=== PATIENT | female | born 1940 | race Caucasian/White ===

== ENCOUNTER → 2017-07-05 08:45 | Outpatient (CLI) | payer MEDICARE, SELFPAY ==
[2017-07-05 12:47] LABS: Absolute Lymphocyte Count 1.59 X10^3/ul (0.83-4.51); Absolute Neutrophil Count 5.6 X10^3/uL (2.0-7.7); Basophil# 0.01 X10^3/uL; Basophil% 0.1 % (0-1); Eosinophil# 0.09 X10^3/uL; Eosinophils% 1.2 % (0-5); Hematocrit 39.4 % (37-47); Hemoglobin 13.3 g/dl (12.0-15.0); Lymphocyte # 1.59 X10^3/ul (4.0); Lymphocyte % 20.9 % (19-41); Mean Corp Hgb Conc 33.8 g/gl (32-36); Mean Corpuscular Hgb 29.6 pg (27.0-32.0); Mean Corpuscular Volume 87.8 fL (81-99); Mean Platelet Vol. 11.8 fl (6.2-12.0); Monocyte# 0.34 X10^3/uL; Monocyte% 4.5 % (0-10); Neutrophil # 5.58 X10^3/uL (2.7-7.7); Neutrophil % 73.2 % (47-70); POSITIVE COUNT NO; POSITIVE DIFFERENTIAL NO; POSITIVE MORPHOLOGY NO; Platelet Count 146 K/mm3 (150-450); RBC Distribution Width CV 12.6 % (11.6-14.6); RBC Distribution Width SD 39.2 fl (35.1-43.9); Red Blood Count 4.49 M/mm3 (4.2-5.4); White Blood Count 7.6 K/mm3 (4.4-11.0)
[2017-07-05 13:03] LABS: Vitamin D,25 Hydroxy 22.1 ng/mL (29.95-100.01)
[2017-07-05 13:08] LABS: ALB/GLOB Ratio 1.3 RATIO (0.9-2.4); AST(SGOT) 32 U/L (15-37); Alanine Aminotransfer ALT/SGPT 51 U/L (13-56); Albumin, Serum 3.9 g/dL (3.2-5.0); Alkaline Phosphatase 88 U/L (45-117); Anion Gap 6 (5-15); BUN 19 mg/dL (7-18); BUN/Creat Ratio 16.4 RATIO (10-20); Calcium,Total 9.1 mg/dL (8.5-10.1); Chloride 108 mmol/L (98-107); Creatinine, Serum 1.16 mg/dL (0.55-1.02); EST Glomerular Filtration Rate 49 mL/min (>60); Est Glom Filt Rate - Afr Amer 59 mL/min (>60); Globulin 3.1 g/dL (2.2-4.2); Glucose 90 mg/dL (74-106); Potassium 4.7 mmol/L (3.5-5.1); Sodium Level 142 mmol/L (136-145); Uric Acid 4.7 mg/dL (2.6-6.0)
== END ==
PROVIDERS: Family Provider Family Medicine Geriatric Medicine; PCP Family Medicine Geriatric Medicine; Visit Provider Family Medicine Geriatric Medicine
DX: E03.9 Hypothyroidism, unspecified (principal); E55.9 Vitamin D deficiency, unspecified; M10.9 Gout, unspecified
CPT/HCPCS: 36415; 80053; 82306; 84443; 84550; 85025

== ENCOUNTER → 2018-07-11 10:02 | Outpatient (CLI) | payer MEDICARE, SELFPAY ==
[2018-07-11 13:23] LABS: Absolute Lymphocyte Count 1.64 X10^3/ul (0.83-4.51); Absolute Neutrophil Count 3.2 X10^3/uL (2.0-7.7); Basophil# 0.03 X10^3/uL; Basophil% 0.6 % (0-1); Eosinophil# 0.12 X10^3/uL; Eosinophils% 2.2 % (0-5); Hemoglobin 13.1 g/dl (12.0-15.0); Lymphocyte # 1.64 X10^3/ul (4.0); Lymphocyte % 30.4 % (19-41); Mean Corp Hgb Conc 32.8 g/gl (32-36); Mean Corpuscular Hgb 28.6 pg (27.0-32.0); Mean Corpuscular Volume 87.3 fL (81-99); Mean Platelet Vol. 11.5 fl (6.2-12.0); Monocyte# 0.37 X10^3/uL; Monocyte% 6.9 % (0-10); Neutrophil # 3.22 X10^3/uL (2.7-7.7); Neutrophil % 59.7 % (47-70); Platelet Count 172 K/mm3 (150-450); RBC Distribution Width CV 12.6 % (11.6-14.6); RBC Distribution Width SD 40.4 fl (35.1-43.9); Red Blood Count 4.58 M/mm3 (4.2-5.4); White Blood Count 5.4 K/mm3 (4.4-11.0)
[2018-07-11 13:29] LABS: POSITIVE COUNT NO; POSITIVE DIFFERENTIAL NO; POSITIVE MORPHOLOGY NO
[2018-07-11 13:40] LABS: Vitamin D,25 Hydroxy 30.7 ng/mL (29.95-100.01)
[2018-07-11 13:48] LABS: ALB/GLOB Ratio 1.3 RATIO (0.9-2.4); AST(SGOT) 18 U/L (15-37); Alanine Aminotransfer ALT/SGPT 22 U/L (13-56); Albumin, Serum 4.2 g/dL (3.2-5.0); Alkaline Phosphatase 90 U/L (45-117); Anion Gap 8 (5-15); BUN 19 mg/dL (7-18); BUN/Creat Ratio 16.2 RATIO (10-20); Calcium,Total 9.3 mg/dL (8.5-10.1); Chloride 108 mmol/L (98-107); Creatinine, Serum 1.17 mg/dL (0.55-1.02); EST Glomerular Filtration Rate 48 mL/min (>60); Est Glom Filt Rate - Afr Amer 58 mL/min (>60); Globulin 3.2 g/dL (2.2-4.2); Glucose 108 mg/dL (74-106); Potassium 3.4 mmol/L (3.5-5.1); Protein, Total 7.4 g/dL (6.4-8.2); Sodium Level 142 mmol/L (136-145); Thyroid Stim Hormone (TSH) 0.89 uIU/mL (0.358-3.74)
== END ==
PROVIDERS: Family Provider Family Medicine Geriatric Medicine; PCP Family Medicine Geriatric Medicine; Visit Provider Family Medicine Geriatric Medicine
DX: E55.9 Vitamin D deficiency, unspecified (principal); R53.83 Other fatigue; M10.9 Gout, unspecified
CPT/HCPCS: 36415; 80053; 82306; 84443; 84550; 85025

== ENCOUNTER 2018-09-01 16:02 | Emergency (ER) | payer MEDICARE, SELFPAY ==
[2018-09-01 16:04] VITALS: BP 148/71; PULSE 74; RESP 16; TEMP 36.8; O2SAT 100; BMI 31.3
[2018-09-01 16:07] VITALS: O2SAT 100
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
[2018-09-01] MEDS: 0.9% Normal Saline 1,000 ML 999 ML IV (16:31)
[2018-09-01 16:33] LABS: Absolute Lymphocyte Count 1.64 X10^3/ul (0.83-4.51); Absolute Neutrophil Count 6.3 X10^3/uL (2.0-7.7); Basophil# 0.02 X10^3/uL; Basophil% 0.2 % (0-1); Eosinophil# 0.05 X10^3/uL; Eosinophils% 0.6 % (0-5); Hematocrit 35.6 % (37-47); Lymphocyte # 1.64 X10^3/ul (4.0); Lymphocyte % 19.7 % (19-41); Mean Corp Hgb Conc 33.7 g/gl (32-36); Mean Platelet Vol. 10.9 fl (6.2-12.0); Monocyte# 0.32 X10^3/uL; Monocyte% 3.8 % (0-10); Neutrophil # 6.27 X10^3/uL (2.7-7.7); Neutrophil % 75.3 % (47-70); Platelet Count 151 K/mm3 (150-450); RBC Distribution Width CV 12.7 % (11.6-14.6); RBC Distribution Width SD 39.6 fl (35.1-43.9); Red Blood Count 4.14 M/mm3 (4.2-5.4); White Blood Count 8.3 K/mm3 (4.4-11.0)
[2018-09-01 16:34] LABS: POSITIVE COUNT NO; POSITIVE DIFFERENTIAL NO; POSITIVE MORPHOLOGY NO
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
[2018-09-01 16:39] LABS: Prothrombin Time (Protime)PT. 12.8 SECONDS (11.7-14.9)
[2018-09-01 16:47] LABS: Anion Gap 8 (5-15); BUN 23 mg/dL (7-18); BUN/Creat Ratio 22.3 RATIO (10-20); Calcium,Total 8.7 mg/dL (8.5-10.1); Chloride 110 mmol/L (98-107); Creatinine, Serum 1.03 mg/dL (0.55-1.02); EST Glomerular Filtration Rate 55 mL/min (>60); Est Glom Filt Rate - Afr Amer 67 mL/min (>60); Estimated Creatinine Clearance 45.89 ml/min; Glucose 105 mg/dL (74-106); Potassium 3.7 mmol/L (3.5-5.1); Sodium Level 142 mmol/L (136-145)
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
[2018-09-01 18:07] VITALS: BP 133/66; PULSE 76; RESP 14; O2SAT 96
[2018-09-01] MEDS: Ondansetron 4 MG/2 ML Vial IV (18:08)
[2018-09-01] MEDS: Morphine 4 MG/ML Syringe IV (18:11)
--- NOTE | 2018-09-01 18:18 | ED.RN ---
CALLED PTS MARIBELL OLIVAS WHO IS CURRENTLY IN THE [facility]. SHE IS AWARE OF PT STATUS AND THAT SHE IS BEING TRANSFERRED TO [facility]
[2018-09-01 18:49] VITALS: BP 131/66; PULSE 74; RESP 14; O2SAT 95
[2018-09-01 19:04] VITALS: BP 131/66; PULSE 74; RESP 14; O2SAT 95
== END 2018-09-01 19:06 | disposition short-term general hospital (02) ==
LOC: ED 16:26
PROVIDERS: Emergency Provider Emergency Medicine; Family Provider Family Medicine Geriatric Medicine; PCP Family Medicine Geriatric Medicine
DX: S82.252A Displaced comminuted fracture of shaft of left tibia, initial encounter for closed fracture (principal); S82.452A Displaced comminuted fracture of shaft of left fibula, initial encounter for closed fracture; S50.812A Abrasion of left forearm, initial encounter; I10 Essential (primary) hypertension; Z79.899 Other long term (current) drug therapy; V09.20XA Pedestrian injured in traffic accident involving unspecified motor vehicles, initial encounter; Y93.01 Activity, walking, marching and hiking; Y92.488 Other paved roadways as the place of occurrence of the external cause; Y99.8 Other external cause status
CPT/HCPCS: 51702; 70450; 71045; 72125; 73090; 73130; 73552; 73590; 73630; 74177; 80048; 85025; 85610; 86850; 86900; 96361; 96374; 96375; 99285; Q9967; A4216; J2405

== ENCOUNTER → 2020-08-03 11:44 | Outpatient (CLI) | payer MEDICARE, SELFPAY ==
[2020-08-03 12:19] LABS: Absolute Lymphocyte Count 1.96 X10^3/uL (0.83-4.51); Absolute Neutrophil Count 2.3 X10^3/uL (2.0-7.7); Basophil# 0.03 X10^3/uL; Basophil% 0.6 % (0-1); Eosinophil# 0.09 X10^3/uL; Eosinophils% 1.9 % (0-5); Hematocrit 40.1 % (37-47); Hemoglobin 12.9 g/dL (12.0-15.0); Lymphocyte # 1.96 X10^3/ul (0.83-4.51); Lymphocyte % 41.4 % (19-41); Mean Corp Hgb Conc 32.2 g/dL (32-36); Mean Corpuscular Hgb 28.8 pg (27.0-32.0); Mean Corpuscular Volume 89.5 fL (81-99); Mean Platelet Vol. 11.4 fl (6.2-12.0); Monocyte# 0.31 X10^3/uL; Monocyte% 6.6 % (0-10); NRBC Flagged by Analyzer 0 % (0-5); Neutrophil # 2.33 X10^3/uL (2.7-7.7); Neutrophil % 49.3 % (47-70); Platelet Count 159 K/mm3 (150-450); RBC Distribution Width CV 12.3 % (11.6-14.6); Red Blood Count 4.48 M/mm3 (4.2-5.4); White Blood Count 4.7 K/mm3 (4.4-11.0)
[2020-08-03 12:35] LABS: Vitamin D,25 Hydroxy 22.5 ng/mL
[2020-08-03 12:48] LABS: ALB/GLOB Ratio 1.2 RATIO (0.9-2.4); AST(SGOT) 16 U/L (15-37); Alanine Aminotransfer ALT/SGPT 20 U/L (13-56); Alkaline Phosphatase 95 U/L (45-117); Anion Gap 3 (5-15); BUN 22 mg/dL (7-18); BUN/Creat Ratio 21.8 RATIO (10-20); Calcium,Total 9.2 mg/dL (8.5-10.1); Chloride 109 mmol/L (98-107); Creatinine, Serum 1.01 mg/dL (0.55-1.02); EST Glomerular Filtration Rate 56 mL/min (>60); Est Glom Filt Rate - Afr Amer 68 mL/min (>60); Globulin 3.3 g/dL (2.2-4.2); Glucose 98 mg/dL (74-106); Potassium 4.5 mmol/L (3.5-5.1); Protein, Total 7.3 g/dL (6.4-8.2); Sodium Level 140 mmol/L (136-145); Thyroid Stim Hormone (TSH) 0.55 uIU/mL (0.358-3.74); Uric Acid 4.2 mg/dL (2.6-6.0)
== END ==
PROVIDERS: PCP Family Medicine Geriatric Medicine; Visit Provider Family Medicine Geriatric Medicine
DX: E55.9 Vitamin D deficiency, unspecified (principal); M10.9 Gout, unspecified; R53.83 Other fatigue
CPT/HCPCS: 36415; 80053; 82306; 84443; 84550; 85025

== ENCOUNTER 2021-05-03 17:00 | Outpatient (CLI) | payer MEDICARE, SELFPAY ==
[2021-05-03 18:31] LABS: M R Staph aureus DNA By PCR Negative (Negative); Probe Check PASS; Specimen Processing Control PASS; Staph aureus DNA By PCR NEGATIVE (Negative)
== END 2021-05-03 23:59 | disposition short-term general hospital (02) ==
PROVIDERS: PCP Family Medicine Geriatric Medicine; Visit Provider Family Medicine Geriatric Medicine
DX: B00.1 Herpesviral vesicular dermatitis (principal); K13.0 Diseases of lips
CPT/HCPCS: 87640

== ENCOUNTER 2021-05-18 11:28 | Outpatient (CLI) | payer MEDICARE, SELFPAY ==
--- NOTE | 2021-05-18 11:36 | MRI_ITS ---
STUDY: MRI BRAIN WITH AND WITHOUT CONTRAST REASON FOR EXAM: Female, 80 years old. MEMORY LOSS, hx prior surgery for benign tumor removal TECHNIQUE: Standardized multiplanar fat and water weighted pulse sequences were obtained. 15ml IV Dotarem was administered for the contrast portion of the examination. COMPARISON: CT 09/01/2018 FINDINGS: There is mild cerebral atrophy with widening of the extra-axial spaces and ventricular dilatation. Normal white matter tracts of the supratentorial brain. There is no evidence for recent intracranial ischemia or other cause of cytotoxic edema on diffusion weighted imaging (DWI). Normal T2* images of the brain without demonstrated susceptibility artifact. There is no demonstrated hemosiderin stain. Healed left parietal craniotomy with large area of encephalomalacia and gliosis in the subjacent left parietal lobe. Normal bilateral basal ganglia. Normal thalami. There is no extra-axial fluid accumulation. Normal flow voids within the major intracranial circulation suggesting patency by spin echo criteria. Normal venous enhancement. There is no enhancing intra-axial or extra-axial abnormality. Normal sella turcica, pituitary gland, infundibular stalk, optic chiasm and hypothalamus. Normal tectal plate and pineal gland. Normal midbrain, flavia and medulla. Normal cerebellum. Normal basal cisterns. There is mild chronic otomastoiditis of the bilateral temporal bones. Normal bilateral internal auditory canals. No demonstrated orbital abnormality, within the constraints of a routine brain study. Normal visualized paranasal sinuses. Normal calvarium and skull base. Normal visualized soft tissue structures. Normal visualized upper cervical spine. MRI/Brain W/WO Contrast IMPRESSION: No change from 09/01/2018. Electronically Signed: Alex Whitaker MD at 12:50 EST ,
[2021-05-18 11:56] LABS: CREATININE FINGERSTICK 0.9 mg/dL (0.55-1.02); EGFR FINGERSTICK > 60.0000 mL/min (>60)
== END 2021-05-18 23:59 | disposition home or self-care (01) ==
LOC: MRI 11:30
PROVIDERS: PCP Family Medicine Geriatric Medicine; Visit Provider Family Medicine Geriatric Medicine
DX: R41.3 Other amnesia (principal)
CPT/HCPCS: 70553; A9575

== ENCOUNTER → 2021-08-10 | Outpatient (CLI) | payer MEDICARE, SELFPAY ==
[2021-08-10 16:53] LABS: Absolute Lymphocyte Count 1.65 X10^3/uL (0.83-4.51); Absolute Neutrophil Count 3.5 X10^3/uL (2.0-7.7); Basophil# 0.05 X10^3/uL; Basophil% 0.9 % (0-1); Eosinophil# 0.12 X10^3/uL; Eosinophils% 2.1 % (0-5); Hematocrit 39.8 % (37-47); Hemoglobin 12.9 g/dL (12.0-15.0); Lymphocyte # 1.65 X10^3/ul (0.83-4.51); Lymphocyte % 28.6 % (19-41); Mean Corp Hgb Conc 32.4 g/dL (32-36); Mean Corpuscular Volume 89.4 fL (81-99); Mean Platelet Vol. 11.5 fl (6.2-12.0); Monocyte% 6.9 % (0-10); NRBC Flagged by Analyzer 0 % (0-5); Neutrophil # 3.54 X10^3/uL (2.7-7.7); Neutrophil % 61.3 % (47-70); Platelet Count 162 K/mm3 (150-450); RBC Distribution Width CV 13.1 % (11.6-14.6); RBC Distribution Width SD 42.9 fl (35.1-43.9); Red Blood Count 4.45 M/mm3 (4.2-5.4); White Blood Count 5.8 K/mm3 (4.4-11.0)
[2021-08-10 17:27] LABS: ALB/GLOB Ratio 1.2 RATIO (0.9-2.4); AST(SGOT) 24 U/L (15-37); Alanine Aminotransfer ALT/SGPT 32 U/L (13-56); Albumin, Serum 3.8 g/dL (3.2-5.0); Alkaline Phosphatase 78 U/L (45-117); Anion Gap 4 (5-15); BUN 21 mg/dL (7-18); BUN/Creat Ratio 19.3 RATIO (10-20); Calcium,Total 9.6 mg/dL (8.5-10.1); Chloride 111 mmol/L (98-107); Cholesterol 170 mg/dL (200); Creatinine, Serum 1.09 mg/dL (0.55-1.02); EST Glomerular Filtration Rate 52 mL/min (>60); Est Glom Filt Rate - Afr Amer 62 mL/min (>60); Globulin 3.2 g/dL (2.2-4.2); Glucose 94 mg/dL (74-106); High Density Lipoprotein 85 mg/dL; Sodium Level 143 mmol/L (136-145); Thyroid Stim Hormone (TSH) 0.65 uIU/mL (0.358-3.74); Triglycerides 64 mg/dL; Very Low Density Lipoprotein 13 mg/dL (5-40)
== END | disposition home or self-care (01) ==
LOC: POLAB3 16:07
PROVIDERS: PCP Family Medicine Geriatric Medicine; Visit Provider Family Medicine Geriatric Medicine
DX: E55.9 Vitamin D deficiency, unspecified (principal); E78.5 Hyperlipidemia, unspecified; R53.83 Other fatigue
CPT/HCPCS: 36415; 80053; 80061; 82306; 84443; 85025

== ENCOUNTER → 2021-11-02 | Outpatient (CLI) | payer MEDICARE, SELFPAY ==
[2021-11-02 17:22] LABS: Absolute Lymphocyte Count 1.76 X10^3/uL (0.83-4.51); Absolute Neutrophil Count 3.5 X10^3/uL (2.0-7.7); Basophil# 0.06 X10^3/uL; Eosinophil# 0.16 X10^3/uL; Eosinophils% 2.7 % (0-5); Hematocrit 42.9 % (37-47); Hemoglobin 13.8 g/dL (12.0-15.0); Lymphocyte # 1.76 X10^3/ul (0.83-4.51); Lymphocyte % 30.2 % (19-41); Mean Corp Hgb Conc 32.2 g/dL (32-36); Mean Corpuscular Hgb 29.4 pg (27.0-32.0); Mean Corpuscular Volume 91.5 fL (81-99); Mean Platelet Vol. 12.4 fl (6.2-12.0); Monocyte# 0.31 X10^3/uL; Monocyte% 5.3 % (0-10); NRBC Flagged by Analyzer 0 % (0-5); Neutrophil # 3.53 X10^3/uL (2.7-7.7); Neutrophil % 60.6 % (47-70); Platelet Count 154 K/mm3 (150-450); RBC Distribution Width SD 43.7 fl (35.1-43.9); Red Blood Count 4.69 M/mm3 (4.2-5.4); White Blood Count 5.8 K/mm3 (4.4-11.0)
[2021-11-02 17:38] LABS: Vitamin D,25 Hydroxy 44.2 ng/mL
[2021-11-02 17:42] LABS: ALB/GLOB Ratio 1.2 RATIO (0.9-2.4); AST(SGOT) 34 U/L (15-37); Alanine Aminotransfer ALT/SGPT 57 U/L (13-56); Albumin, Serum 3.5 g/dL (3.2-5.0); Alkaline Phosphatase 102 U/L (45-117); Anion Gap 6 (5-15); BUN 17 mg/dL (7-18); BUN/Creat Ratio 14.3 RATIO (10-20); Calcium,Total 9.2 mg/dL (8.5-10.1); Chloride 113 mmol/L (98-107); Creatinine, Serum 1.19 mg/dL (0.55-1.02); EST Glomerular Filtration Rate 47 mL/min (>60); Est Glom Filt Rate - Afr Amer 56 mL/min (>60); Globulin 2.9 g/dL (2.2-4.2); Glucose 96 mg/dL (74-106); Potassium 4.2 mmol/L (3.5-5.1); Protein, Total 6.4 g/dL (6.4-8.2); Sodium Level 144 mmol/L (136-145); Thyroid Stim Hormone (TSH) 1.67 uIU/mL (0.358-3.74); Uric Acid 4.7 mg/dL (2.6-6.0)
== END | disposition home or self-care (01) ==
LOC: POLAB3 14:42
PROVIDERS: PCP Family Medicine Geriatric Medicine; Visit Provider Family Medicine Geriatric Medicine
DX: E55.9 Vitamin D deficiency, unspecified (principal); M10.9 Gout, unspecified; R53.83 Other fatigue
CPT/HCPCS: 36415; 80053; 82306; 84443; 84550; 85025

== ENCOUNTER → 2021-11-08 | Outpatient (CLI) | payer MEDICARE, MEDICAID, SELFPAY ==
--- NOTE | 2021-11-08 09:57 | ECHOD_ITS ---
Reason For Study: Arrhythmia Procedure This was a 2D Doppler, Color Flow transthoracic echocardiogram. Exam performed in department. Left Ventricle Normal LV size. Left ventricular systolic function is normal. The estimated ejection fraction is 60 %. No regional wall motion abnormalities noted. Right Ventricle Normal RV size. Normal systolic function. Atria Normal left atrium. Normal right atrium. Prominent eustachian valve. Mitral Valve Mild focal mitral valve calcification. Mild (1+) eccentric mitral valve insufficiency. Tricuspid Valve Normal tricuspid valve. Mild (1+) tricuspid valve insufficiency. Pulmonary artery systolic pressure is 24 mmHg. Aortic Valve Trisinus/trileaflet aortic valve. Pulmonic Valve Normal pulmonic valve. Great Vessels Normal aortic root. The pulmonary artery is normal size. Inferior vena cava collapse with sniff. Pericardium/Pleural No pericardial effusion. MMode/2D Measurements & Calculations LVIDd: 5.3 cm IVSd: 1.0 cm Ao root diam: 3.0 cm LVIDs: 2.4 cm LVPWd: 0.92 cm RVDd: 3.8 cm FS: 54.3 % LAV(MOD-bp): 60.9 ml LVAd ap4: 25.9 cm2 SV(MOD-sp4): 50.4 ml LAV(MOD-bp) Indexed: 33.7 ml/m2 LVLd ap4: 7.5 cm LAV(MOD-sp2): 66.1 ml EDV(MOD-sp4): 74.9 ml LAV(MOD-sp4): 48.5 ml EDV(sp4-el): 75.8 ml LVAs ap4: 13.1 cm2 LVLs ap4: 5.8 cm ESV(MOD-sp4): 24.5 ml ESV(sp4-el): 24.9 ml EF(MOD-sp4): 67.2 % EF(sp4-el): 67.2 % SV(sp4-el): 50.9 ml LA A4 area: 19.1 cm2 LA dimension(2D): 4.0 cm RA A4 area: 17.8 cm2 Doppler Measurements & Calculations MV E max kasi: 85.4 cm/sec Lat Peak E' Kasi: 8.7 cm/sec Med Peak E' Kasi: 9.2 cm/sec E/E' lat: 9.8 E/E' med: 9.3 Ao V2 max: 184.2 cm/sec LV V1 max: 128.2 cm/sec PA V2 max: 128.8 cm/sec Ao max P.6 mmHg LV V1 max P.6 mmHg Ao V2 mean: 110.3 cm/sec Ao mean P.6 mmHg Ao V2 VTI: 46.7 cm TR max kasi: 271.5 cm/sec TR max P.5 mmHg ECHO/Echo Complete Interpretation Summary Normal LV size. Left ventricular systolic function is normal. The estimated ejection fraction is 60 %. Mild focal mitral valve calcification. Mild (1+) eccentric mitral valve insufficiency. Mild (1+) tricuspid valve insufficiency. Pulmonary artery systolic pressure is 24 mmHg. Ordering Physician: Raji Corbett Referring Physician: Kalia Weir Chi Performed By: Itzel Patel, LAYO, RVT
--- NOTE | 2021-11-08 11:09 | RAD_ITS ---
INDICATION: heart block EXAMINATION/TECHNIQUE: X-RAY - XR Chest 2 Views COMPARISON: 09/01/2018. FINDINGS: LINES/DEVICES: None. LUNGS: No consolidation, edema or effusion. No pneumothorax. Biapical prominence suggestive of COPD changes. MEDIASTINUM AND CARDIOVASCULAR STRUCTURES: Cardiac silhouette not enlarged. Central airways and mediastinal contour are unremarkable. BONES AND SOFT TISSUES: Unremarkable. RAD/Chest PA and Lateral IMPRESSION: COPD changes. No radiographic evidence of acute cardiopulmonary disease. Electronically Signed: Fan Machado MD at 12:15 EDT ,
== END | disposition home or self-care (01) ==
PROVIDERS: PCP Family Medicine Geriatric Medicine; Referring Provider Internal Medicine Cardiovascular Disease; Visit Provider Internal Medicine Cardiovascular Disease
DX: I44.39 Other atrioventricular block (principal)
CPT/HCPCS: 71046; 93306

== ENCOUNTER 2021-11-09 13:22 | Observation (INO) | payer MEDICARE, MEDICAID, SELFPAY ==
[2021-11-08 11:58] VITALS: BMI 24.1
[2021-11-09] VITALS (11 sets, daily range): BP systolic 127–167; BP diastolic 46–96; PULSE 59–71; RESP 14–17; TEMP 36.5–36.9; O2SAT 95–100
[2021-11-09 10:23] LABS: Bacteria 0 SEEN /hpf (None Seen); Mucous, Urine 0 SEEN /hpf (<or=2+); Red Blood Cells-Urine 0 SEEN /hpf (0-5); Squamous Epithelial Cells - UA 0 SEEN /hpf (5-10); White Blood Cells 0 SEEN /hpf (0-5)
[2021-11-09 10:47] LABS: Color, Urine Yellow (Yellow); Glucose, Dipstick Normal (Normal); Ketone-Dipstick Negative (Negative); Leukocyte Esterase-Dipstick 100 /ul (Negative); Nitrite-Dipstick Negative (Negative); Occult Blood-Urine 25 /ul (Negative); Protein-Dipstick 15 mg/dl (Negative); Specific Gravity, Urine 1.015 (1.002-1.030); Urine Bilirubin Dipstick Negative (Negative); Urine Clarity Clear (Clear); Urine Urobilinogen Normal (Normal)
--- NOTE | 2021-11-09 13:25 | CL.IE_ITS ---
Patient: CIARA AGUILERA Study Date: 11/09/2021 Performing: Raji Corbett MD : 1940 Age: 80 Gender: female PROCEDURES PERFORMED [id number])INITIAL PACER INSERT+DUAL LEADS INDICATIONS complete heart block PROCEDURE DETAILS The patient was brought to the Catheterization Lab in the postabsorptive nonsedated state. Infor med consent was obtained prior to the procedure. Local anesthetic was given subcutaneously to the le ft upper chest area with Lidocaine 2%. Access was achieved and a guidewire was advanced into the left subclavian vein. PPM ventricular lead was inserted / positioned to right ventricular septal wall. PP M ventricular lead testing performed. PPM ventricular lead testing performed. PPM atrial lead was ins erted / positioned to the right atrial appendage. PPM atrial lead testing performed. The Atrial and V entricular leads sutured in place with 2-0 Silk. Device pocket was irrigated with antibiotic. PPM gen erator was attached to the lead(s) and inserted into the pocket. PPM generator was then interrogated by the computer programmer chief. Subcutaneous closure was completed with 3-0 Vicryl. Skin closure was completed wit h 4-0 Vicryl. Steri-strips applied to left subclavicular incision. The patient tolerated the procedure well. Estimated Blood Loss: 15 ml's IMPLANTED / EX-PLANTED DEVICES IMPLANTED DEVICE(S): PPM Ventricular lead - [employer]: [employer], Model # Tendril STS 52cm , Serial # [id number] PPM Atrial lead - [employer]: [employer], Model # Tendril STS 46cm , Serial # [id number] PPM Generator - [employer]: [employer] [place], Model # Assurity MRI pulse generator [id number] , Serial # [id number] DEVICE PARAMETERS ATRIAL LEAD PARAMETERS: P wave- 5 (mV) threshold- 0.5 (V) impedence- 400 (OHMS) VENTRICULAR LEAD PARAMETERS: threshold- 0.5 (V) impedence- 630 (OHMS) DEVICE PARAMETERS: Mode- DDD Lower rate- 60 Upper rate- 120 CONCLUSIONS / RECOMMENDATIONS Device Conclusions: Successful implantation of a dual chamber pacemaker Device Recommendations: Follow up with Primary Care Physician PROCEDURE MEDICATIONS Versed 1 mg IV Fentanyl 50 mcg IV Versed 1 mg IV Oxygen: 2 L/min via nasal cannula Ancef 2 Gm IV @ 11/09/2021 11:55:30 Signed By Raji Corbett MD On 11/09/2021 13:25:20 Raji Corbett MD
[2021-11-09] MEDS: Donepezil HCl 10 MG Tablet PO (19:40)
[2021-11-09] MEDS: Atorvastatin Calcium 20 MG Tablet PO (19:40)
[2021-11-10 03:02] VITALS: BP 167/62; PULSE 60; RESP 17; TEMP 36.6; O2SAT 99
--- NOTE | 2021-11-10 03:05 | NURSING ---
PT up to [facility]. pt had diarrhea. kayce color with brown flecks. Denies any complaints at this time
[2021-11-10 03:39] VITALS: PULSE 60
[2021-11-10] MEDS: Levothyroxine 88 MCG Tablet PO (04:59)
--- NOTE | 2021-11-10 05:55 | RAD_ITS ---
STUDY: X-RAY CHEST REASON FOR EXAM: Female, 80 years old. Post permanant ICD/Pacemaker -- inspiration/expiration. Arms Down. Wet read to MD TECHNIQUE: PA and lateral views of the chest. Inspiration and expiration views COMPARISON: 11/08/2021 FINDINGS: There is hyperinflation of the lungs consistent with chronic obstructive lung disease (COPD). Lungs are clear. There is no demonstrated pleural abnormality. There is mild cardiac enlargement. Left chest wall pacer device is noted. Normal mediastinum and jelena. Normal visualized pulmonary arteries. Normal visualized aortic arch and descending thoracic aorta. Normal visualized thoracic spine. Normal visualized ribs, clavicles, and shoulders. There is no demonstrated abnormality of the visualized soft tissue structures of the upper abdomen. RAD/Chest 3 View IMPRESSION: Mild COPD. Lungs are clear. No evidence of pneumothorax. Left chest wall pacing device is noted Electronically Signed: Jomar Grant DO at 5:23 EDT ,
[2021-11-10 07:01] VITALS: PULSE 65
[2021-11-10 09:02] VITALS: BP 134/74; PULSE 60; RESP 18; TEMP 36.6; O2SAT 99
--- NOTE | 2021-11-10 10:05 | PCM.PN.CARD ---
Subjective Subjective Patient seen and noted. Doing well. Pacemaker interrogated. Objective Data Vital Signs: Vital Signs Temp Pulse Resp BP Pulse Ox O2 Del Method 97.9 F 60 18 134/74 H 99 Room Air 11/10/21 09:02 11/10/21 09:02 11/10/21 09:02 11/10/21 09:02 11/10/21 09:02 11/10/21 09:02 Oxygen Delivery Method Room Air Weight: 154 lb Body Mass Index (BMI) 24.1 Intake & Output: Intake and Output for Last 24 Hours 11/08/21 11/09/21 11/10/21 23:59 23:59 23:59 Intake Total 600 / 600 320 / 320 Output Total 600 / 600 500 / 500 Balance 0 / 0 -180 / -180 Lab / Micro Data Labs: Laboratory Results - last 24 hr 11/09/21 10:23: Urine Color Yellow, Urine Clarity Clear, Urine pH 6.0, Ur Specific [place] 1.015, Urine Protein 15 H, Urine Glucose (UA) Normal, Urine Ketones Negative, Urine Occult Blood 25 H, Urine Nitrite Negative, Urine Bilirubin Negative, Urine Urobilinogen Normal, Ur Leukocyte Esterase 100 H, Urine RBC 0 SEEN, Urine WBC 0 SEEN, Ur Squamous Epith Cells 0 SEEN, Urine Bacteria 0 SEEN, Urine Mucus 0 SEEN Cardiology Labs/Tests 11/09/21 10:23: Urine Color Yellow, Urine Clarity Clear, Urine pH 6.0, Ur Specific [place] 1.015, Urine Protein 15 H, Urine Glucose (UA) Normal, Urine Ketones Negative, Urine Occult Blood 25 H, Urine Nitrite Negative, Urine Bilirubin Negative, Urine Urobilinogen Normal, Ur Leukocyte Esterase 100 H, Urine RBC 0 SEEN, Urine WBC 0 SEEN Rhythm: EKG: ECHO: Stress Test: Cardiac Cath: PCI: CT Surgery: Holter monitor: EPS: PPM: CXR: Chest CT Scan: Radiography Diagnostic Testing: Radiology Impression Chest X-Ray 11/10/21 05:55 IMPRESSION: Mild COPD. Lungs are clear. No evidence of pneumothorax. Left chest wall pacing device is noted Electronically Signed: Jomar Grant DO at 5:23 EDT , Physical Exam Const alert, oriented x3 and no apparent distress General Appearance: cooperative HEENT hearing grossly normal bilaterally Head and Scalp: atraumatic Eyes EOMs intact bilaterally Neck General: normal visual inspection Chest inspection of chest normal and palpation of chest normal Resp normal respiratory effort Auscultation: clear to auscultation bilaterally Cardio regular rate, regular rhythm, S1 normal heart sound and S2 normal heart sound Jugular Venous Distention: JVD GI normal to inspection, nondistended, normoactive bowel sounds Extremity normal capillary refill and no pedal edema Peripheral Pulses: Yes pulses 2+ throughout and femoral pulses present Skin no rashes or lesions noted Neuro oriented x3 and CN's II-XII intact bilaterally Psych Appearance: grossly normal and appropriate Assessment & Plan Assessment/Plan (1) High degree atrioventricular block: PLAN: Patient is status post dual-chamber implantation for high-grade AV block. Chest x-ray demonstrates adequate positioning and pacer check is noted to be normal. Would not make any changes. We will discharge today for outpatient follow-up.
--- NOTE | 2021-11-10 10:07 | DCINST_ITS ---
Discharge Instructions Diet Discharge Diet: No restrictions Activity Discharge Activity: May Not Drive May shower in (days): 3 Additional Activity Instructions:: May shower or bathe on [day 3]. Do not scrub the incision or soak in the tub. Just wash with soap and let the water run over the incision. Gently pat dry with towel. Medications: Take your pain medication as directed. Refer to your discharge instruction sheet for a list of medications you are to take. Dressing / Incision Call your doctor if your incision/area has: Continuous Slow Oozing, Sudden Increased Bleeding, Increased Pain/ Swelling, Increased Redness, Foul Smelling Discharge and Swelling at the incision site Call your doctor if you observe: Fever of 101 or Higher, Shortness of breath, Dizziness, Fainting spells, Swelling in the ankles, Chest pain, Prolonged hiccupping and Increased palpitations (irregular heartbeat) Suture Line Care: Avoid Pulling/Pushing and Avoid Pinching/Bending Change Dressing in: 3 days Cleanse incision/area with: Keep Dressing Clean & Dry Additional Dressing/Incision Instructions:: When dressing is removed, wash and dry incision. Keep covered with a light bandage if it is rubbing against your clothing. Do not cover the incision with an airtight bandage. Change the bandage daily. Do not remove steri strips. The strips will fall off on their own. Follow Up Care Please Follow Up With: Raji Corbett MD When: Pacer follow up on November 20 at 9 AM at the [facility] Test Results: Test results from this visit will be discussed in further detail at your follow- up appointment, if applicable. Discharge Plan Admission Admit Date/Time: 11/09/21 13:22 Attending Provider: Raji Corbett Primary Care Provider: Kalia Weir Chi Discharge Orders/Prescriptions Prescriptions: Continued levothyroxine 88 mcg tablet 88 mcg PO DAILY donepezil 10 mg tablet 10 mg PO DAILY aspirin [Adult Aspirin Regimen] 81 mg tablet,delayed release (DR/EC) 81 mg PO DAILY simvastatin 40 MG tablet 40 mg PO DAILY Referrals / Follow Up: Kalia Weir Chi, MD [Primary Care Provider] - Disposition Disposition (needs filled in before D/C Order can be placed): Home, Self Care
== END 2021-11-10 10:07 | disposition home or self-care (01) ==
LOC: PCU 13:49
PROVIDERS: Admitting Provider Internal Medicine Cardiovascular Disease; PCP Family Medicine Geriatric Medicine; Visit Provider Internal Medicine Cardiovascular Disease
DX: Z45.018 Encounter for adjustment and management of other part of cardiac pacemaker (principal); G30.9 Alzheimer's disease, unspecified; F02.80 Dementia in other diseases classified elsewhere, unspecified severity, without behavioral disturbance, psychotic disturbance, mood disturbance, and anxiety; I44.2 Atrioventricular block, complete; Z79.899 Other long term (current) drug therapy; E78.5 Hyperlipidemia, unspecified; E03.9 Hypothyroidism, unspecified; Z79.890 Hormone replacement therapy; Z87.891 Personal history of nicotine dependence; R53.81 Other malaise; R00.1 Bradycardia, unspecified; I10 Essential (primary) hypertension; Z86.73 Personal history of transient ischemic attack (TIA), and cerebral infarction without residual deficits; R94.31 Abnormal electrocardiogram [ECG] [EKG]
CPT/HCPCS: 33208; 71047; 81001; 99152; 99153; 99218; J7040; J7050; C1894; G0378

== ENCOUNTER → 2022-02-13 | Outpatient (CLI) | payer MEDICARE, SELFPAY ==
[2022-02-13 17:18] LABS: Absolute Lymphocyte Count 1.32 X10^3/uL (0.83-4.51); Basophil# 0.03 X10^3/uL; Basophil% 0.5 % (0-1); Eosinophil# 0.05 X10^3/uL; Eosinophils% 0.9 % (0-5); Hematocrit 38.6 % (37-47); Hemoglobin 13.1 g/dL (12.0-15.0); Lymphocyte # 1.32 X10^3/ul (0.83-4.51); Lymphocyte % 22.8 % (19-41); Mean Corp Hgb Conc 33.9 g/dL (32-36); Mean Corpuscular Volume 85.4 fL (81-99); Mean Platelet Vol. 12.1 fl (6.2-12.0); Monocyte# 0.34 X10^3/uL; Monocyte% 5.9 % (0-10); NRBC Flagged by Analyzer 0 % (0-5); Neutrophil # 4.02 X10^3/uL (2.7-7.7); Neutrophil % 69.4 % (47-70); Platelet Count 158 K/mm3 (150-450); RBC Distribution Width CV 12.6 % (11.6-14.6); Red Blood Count 4.52 M/mm3 (4.2-5.4); White Blood Count 5.8 K/mm3 (4.4-11.0)
[2022-02-13 17:34] LABS: Vitamin D,25 Hydroxy 32.4 ng/mL
[2022-02-13 17:50] LABS: ALB/GLOB Ratio 1.1 RATIO (0.9-2.4); AST(SGOT) 19 U/L (15-37); Alanine Aminotransfer ALT/SGPT 22 U/L (13-56); Albumin, Serum 3.5 g/dL (3.2-5.0); Alkaline Phosphatase 84 U/L (45-117); Anion Gap 6 (5-15); BUN 19 mg/dL (7-18); BUN/Creat Ratio 18.6 RATIO (10-20); Calcium,Total 8.8 mg/dL (8.5-10.1); Chloride 110 mmol/L (98-107); Creatinine, Serum 1.02 mg/dL (0.55-1.02); EST Glomerular Filtration Rate 56 mL/min (>60); Est Glom Filt Rate - Afr Amer 67 mL/min (>60); Globulin 3.2 g/dL (2.2-4.2); Glucose 87 mg/dL (74-106); Potassium 4.1 mmol/L (3.5-5.1); Protein, Total 6.7 g/dL (6.4-8.2); Sodium Level 140 mmol/L (136-145); Thyroid Stim Hormone (TSH) 0.28 uIU/mL (0.358-3.74); Uric Acid 4.3 mg/dL (2.6-6.0)
== END | disposition home or self-care (01) ==
LOC: POLAB3 15:50
PROVIDERS: PCP Family Medicine Geriatric Medicine; Visit Provider Family Medicine Geriatric Medicine
DX: R53.83 Other fatigue (principal); E55.9 Vitamin D deficiency, unspecified; M10.9 Gout, unspecified
CPT/HCPCS: 36415; 80053; 82306; 84443; 84550; 85025

== ENCOUNTER → 2022-08-23 | Outpatient (CLI) | payer MEDICARE, SELFPAY ==
[2022-08-23 16:50] LABS: Absolute Neutrophil Count 3.5 X10^3/uL (2.0-7.7); Basophil# 0.05 X10^3/uL; Basophil% 0.9 % (0-1); Eosinophil# 0.08 X10^3/uL; Eosinophils% 1.4 % (0-5); Hematocrit 43.3 % (37-47); Hemoglobin 14.1 g/dL (12.0-15.0); Mean Corp Hgb Conc 32.6 g/dL (32-36); Mean Corpuscular Hgb 29.2 pg (27.0-32.0); Mean Corpuscular Volume 89.6 fL (81-99); Mean Platelet Vol. 11.8 fl (6.2-12.0); Monocyte% 5.3 % (0-10); NRBC Flagged by Analyzer 0 % (0-5); Neutrophil # 3.52 X10^3/uL (2.7-7.7); Neutrophil % 62.2 % (47-70); Platelet Count 169 K/mm3 (150-450); RBC Distribution Width CV 12.3 % (11.6-14.6); RBC Distribution Width SD 40.3 fl (35.1-43.9); Red Blood Count 4.83 M/mm3 (4.2-5.4); White Blood Count 5.7 K/mm3 (4.4-11.0)
[2022-08-23 17:10] LABS: Vitamin D,25 Hydroxy 41.2 ng/mL
[2022-08-23 17:12] LABS: ALB/GLOB Ratio 1.1 RATIO (0.9-2.4); AST(SGOT) 23 U/L (15-37); Alanine Aminotransfer ALT/SGPT 24 U/L (13-56); Alkaline Phosphatase 95 U/L (45-117); Anion Gap 7 (5-15); BUN 15 mg/dL (7-18); BUN/Creat Ratio 14.4 RATIO (10-20); Calcium,Total 9.4 mg/dL (8.5-10.1); Chloride 114 mmol/L (98-107); Cholesterol 161 mg/dL (200); Creatinine, Serum 1.04 mg/dL (0.55-1.02); EST Glomerular Filtration Rate 54 mL/min (>60); Est Glom Filt Rate - Afr Amer 66 mL/min (>60); Globulin 3.5 g/dL (2.2-4.2); Glucose 101 mg/dL (74-106); High Density Lipoprotein 93 mg/dL; Protein, Total 7.5 g/dL (6.4-8.2); Sodium Level 145 mmol/L (136-145); Thyroid Stim Hormone (TSH) 2.05 uIU/mL (0.358-3.74); Triglycerides 62 mg/dL; Uric Acid 3.9 mg/dL (2.6-6.0); Very Low Density Lipoprotein 12 mg/dL (5-40)
== END | disposition home or self-care (01) ==
LOC: POLAB3 09:21
PROVIDERS: PCP Family Medicine Geriatric Medicine; Visit Provider Family Medicine Geriatric Medicine
DX: M10.9 Gout, unspecified (principal); R53.83 Other fatigue; E55.9 Vitamin D deficiency, unspecified
CPT/HCPCS: 36415; 80053; 80061; 82306; 84443; 84550; 85025

== ENCOUNTER 2022-10-24 16:45 | Observation (INO) | payer MEDICARE, MEDICAID, SELFPAY ==
[2022-10-24] VITALS (7 sets, daily range): BP systolic 161–202; BP diastolic 70–104; PULSE 71–918; RESP 14–17; TEMP 36.3–36.7; O2SAT 97–100; BMI 24.3; BMI 23.8
--- NOTE | 2022-10-24 17:04 | CT_ITS ---
STUDY: CT BRAIN WITHOUT CONTRAST REASON FOR EXAM: Female, 81 years old. ms change Individualized dose optimization techniques were used for this CT. TECHNIQUE: Transaxial CT imaging of the brain was performed without administration of intravenous contrast material. COMPARISON: 09/01/22 FINDINGS: There are calcifications around the carotid artery. These are noted in the cavernous carotid arteries. There is a left craniotomy/craniectomy. Normal soft tissues. There is mild cerebral atrophy with widening of the extra-axial spaces and ventricular dilatation. Normal white matter tracts of the cerebral hemispheres. Left frontoparietal encephalomalacia. Normal basal ganglia and thalami. Normal brainstem. There is mild cerebellar atrophy. There is no intracranial hemorrhage. There are no findings of an acute ischemic infarction. Normal visualized paranasal sinuses. ASPECTS Score for Acute Strokes: 01/15 CT/Brain/Head without Contrast IMPRESSION: There are no acute findings. Chronic involutional changes of the brain. Electronically Signed: Chente Adair MD at 18:13 EDT ,
--- NOTE | 2022-10-24 17:07 | EDS_ITS ---
HPI History of Present Illness Chief Complaint: Confusion Narrative Narrative: Patient is brought in by family with concerns of confusion over the past 5 days as well as behavioral changes. Apparently there are things she does not remember quite as well at times, also today she walked to the library when she came back she thought an old job that she has not worked for at least 20 years was trying to kevin her, this company particular does not exist anymore. She now understands that this was not real. When I talked to her she is oriented x3. [facility] Medical History Alzheimer's dementia Bradycardia Brain tumor (benign) Depression High degree atrioventricular block History of CVA (cerebrovascular accident) (2005) Hyperlipidemia Hypothyroidism Obesity Pacemaker Paroxysmal ventricular tachycardia Presence of permanent cardiac pacemaker Home Medications simvastatin 40 mg tablet 40 mg PO DAILY 05/24/15 [History Last Taken 09/01/18] levothyroxine 88 mcg tablet 75 mcg PO DAILY 11/07/21 [History Last Taken 11/09/21] aspirin 81 mg tablet,delayed release (Adult Aspirin Regimen) 81 mg PO DAILY 11/08/21 [History Last Taken Unknown] donepezil 10 mg tablet mg 10/24/22 [History Last Taken Unknown] levothyroxine 75 mcg tablet mcg 10/24/22 [History Last Taken Unknown] Allergy/AdvReac Type Severity Reaction Status Date / Time No Known Allergies Allergy Verified 10/24/22 16:48 Family History Other Cancer Hypertension Surgical History History of brain surgery (2003) History of open reduction and internal fixation (ORIF) procedure Social History Smoking Status: Former smoker ROS ROS ED ROS Narrative Past medical history: Reviewed Medications: Reviewed Social history: Noncontributory Review of systems: All systems negative except as indicated General: No fever Eyes: No visual changes ENT: No upper airway congestion, normal voice Neck: No neck pain Cardiovascular: No chest pain Respiratory: No shortness of breath or cough Gastrointestinal: No abdominal pain, nausea vomiting or diarrhea Genitourinary: No dysuria Musculoskeletal: Denies myalgias no difficulty with ambulation Skin: No rash Neurological: Confusion as in HPI but no focal weakness or vision changes Psych: As in HPI Hematologic: No easy bleeding or easy bruising EXAM Physical Exam Narrative Exam Narrative: Physical exam General: Well nourished, Well developed, No Acute Distress Head: Normocephalic, Atraumatic Eyes: Conjunctiva not pale ENT: Moist mucous membranes Neck: Supple, Nontender, No lymphadenopathy Cardiovascular: Regular rate, Regular rhythm Respiratory: No distress, CTA bilaterally Abdomen: Soft, Nontender, Nondistended Back: Nontender, Normal Inspection. Negative for: CVA tenderness Extremities: Nontender, No edema Skin: Normal color, No rash Neurological: Alert, currently she is oriented x3 and she is aware of the situation. Normal Strength, Normal Sensation Psychological: Normal affect Const Vital Signs: 10/24/22 16:48 10/24/22 18:31 Temperature 97.3 F L Temperature Source Temporal Pulse Rate 75 78 Respiratory Rate 17 16 Blood Pressure 181/104 H 182/79 H Blood Pressure Mean 129 113 Pulse Ox 97 100 Oxygen Delivery Method Room Air Room Air MDM MDM MDM Narrative Medical decision making narrative: Patient has an unremarkable ED work-up. CT is unremarkable there is no intracranial mass. Patient does not have a UTI, she does not have any electrolyte abnormalities to account for recent behavioral changes. I went back to talk to the family, they are unsafe taking her home since the patient has been wandering off, walking around and family thinks she could wander off at any time. I discussed the patient with the hospitalist for admission Lab Data Labs: Laboratory Results - last 24 hr 10/24/22 10/24/22 17:20 17:24 WBC 7.3 RBC 4.88 Hgb 14.4 Hct 43.4 MCV 88.9 MCH 29.5 MCHC 33.2 RDW Std Deviation 40.9 RDW Coeff of Ronnie 12.5 Plt Count 180 MPV 11.2 Immature Gran % (Auto) 0.100 Neut % (Auto) 80.0 H Lymph % (Auto) 15.0 L [place] % (Auto) 4.4 Eos % (Auto) 0.0 Baso % (Auto) 0.5 Absolute Neuts (auto) 5.9 Absolute Lymphs (auto) 1.10 Nucleated RBC % 0 Sodium 143 Potassium 3.7 Chloride 110 H Carbon Dioxide 23.0 Anion Gap 10 BUN 17 Creatinine 1.15 H Estim Creat Clear Calc 38.57 Est GFR (MDRD) Af Amer 58 L Est GFR (MDRD) Non-Af 48 L BUN/Creatinine Ratio 14.8 Glucose 127 H Calcium 9.2 Total Bilirubin 0.50 AST 35 ALT 35 Alkaline Phosphatase 90 Total Protein 7.2 Albumin 4.2 Globulin 3.0 Albumin/Globulin Ratio 1.4 TSH 2.44 Urine Color Yellow Urine Clarity Clear Urine pH 5.0 Ur Specific [place] 1.020 Urine Protein 30 H Urine Glucose (UA) Normal Urine Ketones 15 H Urine Occult Blood 50 H Urine Nitrite Negative Urine Bilirubin Negative Urine Urobilinogen Normal Ur Leukocyte Esterase 25 H Urine RBC 0-5 SEEN Urine WBC 0-5 SEEN Ur Squamous Epith Cells 0-5 SEEN Urine Bacteria 0 SEEN Urine Mucus 0 SEEN Radiography Diagnostic Testing: Clinical Impression(s) from Imaging Studies Brain CT 10/24/22 17:04 IMPRESSION: There are no acute findings. Chronic involutional changes of the brain. Electronically Signed: Chente Adair MD at 18:13 EDT , Chest X-Ray 10/24/22 17:40 IMPRESSION: No acute findings in the chest. Electronically Signed: Chente Adair MD at 18:15 EDT , Chest x-ray read by me as normal Discharge Plan Triage Chief Complaint: Confusion ED Provider: Yuniel Enriquez Dx/Rx/DC Orders Clinical Impression: Alzheimer's dementia, Hyperlipidemia, Hypertension Prescriptions: No Action levothyroxine 88 mcg tablet 75 mcg PO DAILY aspirin [Adult Aspirin Regimen] 81 mg tablet,delayed release (DR/EC) 81 mg PO DAILY simvastatin 40 MG tablet 40 mg PO DAILY levothyroxine 75 mcg tablet Patient Comments: TAKE 1 TABLET BY MOUTH EVERY DAY donepezil 10 mg tablet Patient Comments: TAKE 1 TABLET ORALLY ONCE PER DAY FOR 90 DAYS TAKE WITH SUPPER. Primary Care Provider: Kalia Weir Chi Referrals: Kalia Weir Chi, MD [Primary Care Provider] - Disposition Disposition: Acute Care Hospital [facility]
--- NOTE | 2022-10-24 17:17 | NURSING ---
NO OLD EKGS
[2022-10-24 17:31] LABS: Bacteria 0 SEEN /hpf (None Seen); Mucous, Urine 0 SEEN /hpf (<or=2+)
[2022-10-24 17:36] LABS: Absolute Neutrophil Count 5.9 X10^3/uL (2.0-7.7); Basophil# 0.04 X10^3/uL; Basophil% 0.5 % (0-1); Hematocrit 43.4 % (37-47); Hemoglobin 14.4 g/dL (12.0-15.0); Mean Corp Hgb Conc 33.2 g/dL (32-36); Mean Corpuscular Hgb 29.5 pg (27.0-32.0); Mean Corpuscular Volume 88.9 fL (81-99); Mean Platelet Vol. 11.2 fl (6.2-12.0); Monocyte# 0.32 X10^3/uL; Monocyte% 4.4 % (0-10); NRBC Flagged by Analyzer 0 % (0-5); Neutrophil # 5.86 X10^3/uL (2.7-7.7); Platelet Count 180 K/mm3 (150-450); RBC Distribution Width CV 12.5 % (11.6-14.6); RBC Distribution Width SD 40.9 fl (35.1-43.9); Red Blood Count 4.88 M/mm3 (4.2-5.4); White Blood Count 7.3 K/mm3 (4.4-11.0)
--- NOTE | 2022-10-24 17:40 | RAD_ITS ---
EXAM: XR CHEST, 1 VIEW CLINICAL INDICATION: weakness TECHNIQUE: Frontal view of the chest. COMPARISON: 8.5.22 FINDINGS: LUNGS AND PLEURAL SPACES: Unremarkable. No consolidation or edema. No pneumothorax. No effusion. HEART: Unremarkable. Cardiac silhouette not enlarged. MEDIASTINUM: Central airways and mediastinal contour are unremarkable. BONES/JOINTS: Unremarkable. SOFT TISSUES: Unremarkable. TUBES, LINES AND DEVICES: There is a left sided pacemaker battery pack. RAD/Chest 1 View (Portable) IMPRESSION: No acute findings in the chest. Electronically Signed: Chente Adair MD at 18:15 EDT ,
[2022-10-24 17:44] LABS: Color, Urine Yellow (Yellow); Glucose, Dipstick Normal (Normal); Ketone-Dipstick 15 mg/dl (Negative); Leukocyte Esterase-Dipstick 25 /ul (Negative); Nitrite-Dipstick Negative (Negative); Occult Blood-Urine 50 /ul (Negative); Protein-Dipstick 30 mg/dl (Negative); Urine Bilirubin Dipstick Negative (Negative); Urine Clarity Clear (Clear); Urine Urobilinogen Normal (Normal)
[2022-10-24 17:52] LABS: Red Blood Cells-Urine 0-5 SEEN /hpf (0-5); Squamous Epithelial Cells - UA 0-5 SEEN /hpf (5-10); White Blood Cells 0-5 SEEN /hpf (0-5)
[2022-10-24 18:00] LABS: ALB/GLOB Ratio 1.4 RATIO (0.9-2.4); AST(SGOT) 35 U/L (15-37); Alanine Aminotransfer ALT/SGPT 35 U/L (13-56); Albumin, Serum 4.2 g/dL (3.2-5.0); Alkaline Phosphatase 90 U/L (45-117); Anion Gap 10 (5-15); BUN 17 mg/dL (7-18); BUN/Creat Ratio 14.8 RATIO (10-20); Calcium,Total 9.2 mg/dL (8.5-10.1); Chloride 110 mmol/L (98-107); Creatinine, Serum 1.15 mg/dL (0.55-1.02); EST Glomerular Filtration Rate 48 mL/min (>60); Est Glom Filt Rate - Afr Amer 58 mL/min (>60); Estimated Creatinine Clearance 38.57 ml/min; Glucose 127 mg/dL (74-106); Potassium 3.7 mmol/L (3.5-5.1); Protein, Total 7.2 g/dL (6.4-8.2); Sodium Level 143 mmol/L (136-145); Thyroid Stim Hormone (TSH) 2.44 uIU/mL (0.358-3.74)
--- NOTE | 2022-10-24 19:21 | PCM.HP.STD ---
HPI - General General Date of Admission: 10/24/22 Date of Service: 10/24/22 Chief Complaint: Confusion HPI Narrative CIARA AGUILERA, is a 81 F with a significant history of hyperlipidemia; hypothyroidism; and Alzheimer's dementia who presents to the emergency department for 5-day history of progressively worsening confusion. [id number] was at the bedside and majority of history was provided by [id number]. Patient has been wandering in the house and does not know where she is at. Patient had admitted that she has been confused. Per family last time patient was this confused it was found that she had a brain tumor which has since brain tumor been resected. [facility] Medical History Alzheimer's dementia Bradycardia Brain tumor (benign) Depression High degree atrioventricular block History of CVA (cerebrovascular accident) (2005) Hyperlipidemia Hypothyroidism Obesity Pacemaker Paroxysmal ventricular tachycardia Presence of permanent cardiac pacemaker Home Medications simvastatin 40 mg tablet 40 mg PO DAILY 05/24/15 [History Last Taken 09/01/18] levothyroxine 88 mcg tablet 75 mcg PO DAILY 11/07/21 [History Last Taken 11/09/21] aspirin 81 mg tablet,delayed release (Adult Aspirin Regimen) 81 mg PO DAILY 11/08/21 [History Last Taken Unknown] donepezil 10 mg tablet mg 10/24/22 [History Last Taken Unknown] levothyroxine 75 mcg tablet mcg 10/24/22 [History Last Taken Unknown] Allergy/AdvReac Type Severity Reaction Status Date / Time No Known Allergies Allergy Verified 10/24/22 16:48 Family History Other Cancer Hypertension Surgical History History of brain surgery (2003) History of open reduction and internal fixation (ORIF) procedure Social History Smoking Status: Former smoker ROS ROS Narrative Pertinent positives and pertinent negatives as noted in HPI. All other systems were reviewed and are negative Vital Signs Vital Signs Vital Signs: 10/24/22 16:48 10/24/22 18:31 Temperature 97.3 F L Temperature Source Temporal Pulse Rate 75 78 Respiratory Rate 17 16 Blood Pressure 181/104 H 182/79 H Blood Pressure Mean 129 113 Pulse Ox 97 100 Oxygen Delivery Method Room Air Room Air Weight Weight: 70.261 kg Body Mass Index (BMI) 24.3 Physical Exam Narrative Physical exam: General: Well-nourished, well-developed. Head: Normocephalic, atraumatic, no tenderness Eyes: Vision is grossly intact. EOMI ENT, no trauma, moist mucous membranes, no rhinorrhea Neck: Nontender, No thyromegaly. CVS: Regular rate and rhythm. S1-S2 present. No murmur, gallop or rub. Respiratory : clear to auscultation bilaterally, chest wall nontender Abdomen: Soft, nontender, nondistended, normal bowel sounds, no masses : Deferred Back: Nontender, no CVA tenderness. Extremities: Nontender full range of motion, no trauma Skin: Normal color, no trauma, abrasions Neuro: Alert. Patient knows that she is at [facility]. She knows the exact date. Patient knows that the name of the president of the Cranial nerves II through XII grossly intact. Psychiatry: Normal mood. Normal affect. Results Lab / Micro Data 10/24/22 17:24 10/24/22 17:24 Labs: Laboratory Results - last 24 hr 10/24/22 17:20: Urine Color Yellow, Urine Clarity Clear, Urine pH 5.0, Ur Specific [place] 1.020, Urine Protein 30 H, Urine Glucose (UA) Normal, Urine Ketones 15 H, Urine Occult Blood 50 H, Urine Nitrite Negative, Urine Bilirubin Negative, Urine Urobilinogen Normal, Ur Leukocyte Esterase 25 H, Urine RBC 0-5 SEEN, Urine WBC 0-5 SEEN, Ur Squamous Epith Cells 0-5 SEEN, Urine Bacteria 0 SEEN, Urine Mucus 0 SEEN 10/24/22 17:24: WBC 7.3, RBC 4.88, Hgb 14.4, Hct 43.4, MCV 88.9, MCH 29.5, MCHC 33.2, RDW Std Deviation 40.9, RDW Coeff of Ronnie 12.5, Plt Count 180, MPV 11.2, Immature Gran % (Auto) 0.100, Neut % (Auto) 80.0 H, Lymph % (Auto) 15.0 L, [place] % (Auto) 4.4, Eos % (Auto) 0.0, Baso % (Auto) 0.5, Absolute Neuts (auto) 5.9, Absolute Lymphs (auto) 1.10, Nucleated RBC % 0, Sodium 143, Potassium 3.7, Chloride 110 H, Carbon Dioxide 23.0, Anion Gap 10, BUN 17, Creatinine 1.15 H, Estim Creat Clear Calc 38.57, Est GFR (MDRD) Af Amer 58 L, Est GFR (MDRD) Non-Af 48 L, BUN/Creatinine Ratio 14.8, Glucose 127 H, Calcium 9.2, Total Bilirubin 0.50, AST 35, ALT 35, Alkaline Phosphatase 90, Total Protein 7.2, Albumin 4.2, Globulin 3.0, Albumin/Globulin Ratio 1.4, TSH 2.[address] 10/24/22 17:04 IMPRESSION: There are no acute findings. Chronic involutional changes of the brain. Electronically Signed: Chente Adair MD at 18:13 EDT , Chest X-Ray 10/24/22 17:40 IMPRESSION: No acute findings in the chest. Electronically Signed: Chente Adair MD at 18:15 EDT , Assessment & Plan Assessment/Plan (1) Alzheimer's dementia: QUALIFIERS: Alzheimer's disease onset: unspecified onset Dementia severity: moderate Dementia behavioral or psychological symptom: with other behavioral disturbance Qualified Code(s): G30.9 - Alzheimer's disease, unspecified; F02.B18 - Dementia in other diseases classified elsewhere, moderate, with other behavioral disturbance (2) Encephalopathy acute: PLAN: Plan Acute on chronic encephalopathy Chronic encephalopathy secondary to Alzheimer disease. Acute encephalopathy unclear etiology. Reportedly with history of a brain tumor that at that time reportedly caused acute encephalopathy will get MRI of brain. Impression of brain CT radiologist:There are no acute findings. Chronic involutional changes of the brain. Brain CT was visualized and independently interpreted and I agree with radiology interpretation. Emergency department labs reviewed showed normal TSH Check syphilis antibodies. CMP is unrevealing Case management evaluated patient and does not need emergency psychiatry placement. Case management consult in the a.m. CKD stage IV Stable Hypertensive urgency Labetalol given the emergency department. Reportedly patient does not have a history of hypertension. Seema she is not on any home hypertensive medication. Hydralazine ordered. Trend. DVT prophylaxis: Subcutaneous Lovenox ordered Time spent in the patient's overall evaluation,decision-making process, review of diagnostic data, adjustment of management, discussion with other providers, nursing nursing and ancillary staff involved in patient's care documentation,44 minutes. Charges/Coding Visit Charges Inpatient E&M: 76413 Init Hosp L2
[2022-10-24] MEDS: Labetalol (Prefilled) 20 MG/4 ML 5 MG IV (19:43)
--- NOTE | 2022-10-24 20:38 | CM.ED ---
Social Work Psychiatric Assessment Reason for consult: Kelly-psych evaluation Informant(s): Pt and Araceli ([id number]/POA) and medical record Chief Complaint: ?Confusion Marital/Social History/Living Situation: Pt is a 81-year-old female. Pt resides with her son and [id number]-[id number]. Son/daughter help to care for patient. History: None Education and Employment History: High school education. Pt is retired from a truck stop. Mental Health Treatment/History: Patient?s ubegtjei-[id number]-tkb reports 20 years ago patient had a nervous breakdown and stayed at a psychiatric hospital. History of depression listed and DIL reports she has noticed anxiety recently. Pt has a dementia diagnosis. Substance Abuse Hx: Denies Abuse Issues/Trauma HX: Denies Risk to Self/Others: Pt denies SI/HI. No hx of attempts or self-harm known. Triggers/Stressors/Risk factors: Pt?s DIL denies any major changes or events. Pt does have dementia and frustrations related to dementia/memory. Coping Skills: None reported Support/Resources: Supportive family, medical support Mental Status Exam: Pt is oriented x3 but lacks understanding of why she is at the hospital. Pt has an impaired memory. Appearance/General Behavior/Mood/Affect: Pt is well-kept, clean, and pleasant. Pt does have a flat affect and DIL reports some frustration and anxiety. Communication Pattern/Thought process: Pt has difficulty communicating. Pt has long pauses when asked a question in which patient looks as if she is not understanding or zoned out but then will answer question. Pt reports some paranoid thoughts regarding her old work at the truck stop. General Intellectual Functioning:?? Average Judgment/Insight: Pt has poor judgment and poor insight. Assessment: Patient presents as pleasant and cooperative. Pt is oriented for the most part and can answer questions appropriately. Pt answers slowly with very long pauses before answers. Pt has flat affect. Pt denies any SI/HI and does not present as responding to internal stimuli or delusions. Pt does mention the truck stop she worked at and has paranoid thoughts like that they are ?pressing charges on her.? This place closed many years ago according to DIL. This paranoia presents as related to dementia as patient worked here many years ago and her mental ?breakdown? was related to her work here. Pt has had some anxiety and frustration primarily in relation to her confusion. Pt is not exhibiting any violent or dangerous behaviors and does not present as a risk to others or self. Pt has had decline in the past 5 days with confusion. Pt is eating and sleeping well and is able to shower and care for personal needs. As patient is cooperative, redirectable and not a safety risk, patient does not present as needing geriatric psych placement. Patient does not meet criteria for inpatient psych placement due to not being a danger to self or others, no AVH, and is able to care for ADL?s. Plan: Pt does not meet criteria for placement currently and will be treated medically. Chantal Silva [employer]CH[employer]ICIAN, INSPECTOR REPAIRER
[2022-10-24] MEDS: MELATONIN 3 MG TABLET PO (21:30)
[2022-10-24] MEDS: Donepezil HCl 10 MG Tablet PO (21:35)
[2022-10-24] MEDS: Atorvastatin Calcium 20 MG Tablet PO (21:35)
--- NOTE | 2022-10-25 05:35 | NURSING ---
Nurse went to get blood pressure at 0230 this am, patient refused, stating I don't have insurance and they are going to kevin me. After inquiring about her concerns, patient says that the truck stop will kevin her. She did admit that the company closed down years ago, but still refused me checking her blood pressure, stating NO. Later, nurse took another nurse with her at 0530 and patient said I don't want any more treatments, I don't have insurance. Both nurses repeatedly tried to reassure that she didn't need insurance for taking her blood pressure and coax her to take her medicine and BP, but she refused taking her Synthroid and BP. She adamantly said NO several times.
--- NOTE | 2022-10-25 07:41 | NURSING ---
Pt refused labs this morning. Nurse went in with lab to try to convince her to get labs done. Patient said that she didn't have insurance, even though lab and nurse tried to convince her that it was covered several times.
--- NOTE | 2022-10-25 09:32 | NURSING ---
spoke with daughter in law on phone to update. not sure where pacemaker info card is kept. aware that pt will refuse mri and that has not let staff or lab perform care.
[2022-10-25 11:39] VITALS: BP 126/90; PULSE 82; RESP 18; TEMP 37.6; O2SAT 98
--- NOTE | 2022-10-25 12:13 | CASEMGMT ---
Hospitalist notified that pt family reports pt has medicaid. TC to registration, spoke with Padmini who states pt has [facility] #[phone]. She will update record.
--- NOTE | 2022-10-25 12:59 | CASEMGMT ---
Social Work Pt's dgt in Law Araceli Owens states pt has a living will and a health care POA naming Araceli Owens. SW updated that documents are not on file at [facility] and requested they be brought in for scanning into the EMR. XOCHITL Alexander
--- NOTE | 2022-10-25 13:03 | CASEMGMT ---
Social work SW to room to meet with patient for initial transition planning/care coordination?assessment.?SW?introduced self and role at [facility] to pt and pt's daughter in law Araceli Owens. Pt slow to respond to SW questions and not answering most questions. Pt dgt in law Araceli providing assessment questions. Care providers, pharmacy, and demographics verified/updated at this time. PCP: [facility] Specialists: Aric, cardiology [facility] Insurance: Medicare and Medicaid Prescription Benefit:?yes Living Will/HPOA:?Pt has a living will and health care POA naming JANET Owens. SW requested these items be brought in for scanning into medical record. LNOK: son and daughter in law Calixto and Ba Owens Living Arrangements: Pt lives in a one story home with her son and DIL. DIL reports pt is physically able to dress and bath but memory impairs her ability to do this. DIL provides meals and cleaning. Transportation:?Pt does not drive. DIL and son provide transport DME: ? none HHC/SNF: none previously Pt is quiet throughout conversation. Slow to answer a few questions and unwilling to answer others. Per JANET, pt lives with son and DIL and has been declining cognitively over the last week. Pts family does work and pt is home alone. Family is unable to provide needed 24 hour care. SW spoke with JANET regarding hospital observation status and that medicare will not cover cost of SNF. [facility] states pt does have Medicaid. Phone call to registration and this is confirmed. Medicaid #[id number]. SW did explain Medicaid coverage for SNF. A list of SNF providers including quality and resource use data and consistent with the patient?s preferred geographic region, medical needs, and insurance network were provided from the [facility] Guide. Pt DIL feels pt will require SNF placement and [facility] provider [facility]. [place] career services assistant to send referral. PLAN: [facility], pending acceptance and Level of Care XOCHITL Alexander??
--- NOTE | 2022-10-25 13:16 | CASEMGMT ---
Discharge Planning Referral sent to [facility] via [facility]. Alis Alvarez, Discharge Planning Asst.
--- NOTE | 2022-10-25 15:07 | CASEMGMT ---
LOVE FAGAN in to discuss ARIAS form with patient and pt dtr in law. RN GRACIA explained ARIAS form, patient dtr in law voiced understanding. Pt dtr in law signed form and filed in chart. Pt dtr in law provided with a copy of signed ARIAS form. Patient and dtr in law had no further questions or concerns at this time.
--- NOTE | 2022-10-25 15:16 | CHAPLAIN ---
Type of Pastoral Visit _x__ Initial Visit ___ Follow-up Visit ___ On-call Visit ___ General Patient Visit ___ Spiritual Assessment ___ Family Conference ___ Bereavement ___ Rapid Response ___ Code Blue ___ Other (describe below) Pastoral Care Referral From ___ Patient _x__ Family ___ Nurse ___ Physician ___ Instructor Business Education ___ Internal Auditor ___ Other (describe below) Sacrament/Intervention ___ Active listening ___ Anointing ___ Gnosticism ___ Bereavement ___ Communion ___ Thao exploration ___ ___ Life review ___ Prayer ___ Reconciliation ___ Sacrament of Sick _x__ Supportive presence ___ Wedding ___ Other (describe below) Pastoral Comments patient is in the bed and her DIL is holding her hands at the bedside; pt is alert but only looks up rarely when DIL instructs her to do so; pt is hesitant to answer questions but does respond to a couple basic questions with short answers; pt knows the name of her DIL but has difficulty with other open ended questions; pt's hands are shaking and she holds on to DIL; DIL is open to conversation and supportive presence of this personal injury litigation paralegal; offer of support and presence given but pt does not answer the question; offer of future support is made as pt or family would desire
--- NOTE | 2022-10-25 15:41 | CASEMGMT ---
Discharge Planning [facility] declined d/t having no beds. Family notified and would referrals made to both [facility] and [facility]. [facility]. Alis Alvarez, Discharge Planning Asst.
[2022-10-25 16:02] LABS: Syphilis Antibodies Non-reactive
--- NOTE | 2022-10-25 16:17 | CASEMGMT ---
Social Work [facility] can accept pt clinically however, pt's Medicaid is [facility] only and not prison Medicaid. Pt will need to be assessed for prison Medicaid eligibility. SW met with pt, her son and DIL and updated. They are agreeable to complete financial assessment. DIL inquiring about [facility] as this is their first choice. SW sent message to [facility] inquiring about their ability to accept pt and informing of Medicaid situation. SW will await return response from [facility]. Plan: [facility] vs [facility], pending acceptance and insurance XOCHITL Alexander
[2022-10-25 16:47] LABS: Vitamin B12 426 pg/mL (211-911)
[2022-10-25 17:00] VITALS: BP 170/66; PULSE 65; RESP 16; TEMP 36.8; O2SAT 99
[2022-10-25 17:17] VITALS: BP 170/66; PULSE 67
[2022-10-25] MEDS: hydrALAZINE 20 MG/ML Vial 5 MG IV (17:17)
--- NOTE | 2022-10-25 17:36 | PCM.PN.HOSP ---
Reason for Visit Reason for Visit: Diagnoses Dementia in other diseases classified elsewhere, moderate, with other behavioral disturbance (10/24/22) Alzheimer's disease, unspecified (10/24/22) Encephalopathy, unspecified (10/24/22) Subjective Subjective Seen and examined today, I talked with the patient's daughter in law who was in the room during one of my exam times today, earlier today I tried to examine the patient but she forcibly pushed me away when I placed the stethoscope on her chest and back, she remains confused at this time, she is able to tell me her name and year. I explained to the daughter in law that if the patient needed to go to an extended care facility, she would most likely have to pay [id number] since the patient was in the hospital under an observation status. Objective Data Objective Data Vital Signs: Vital Signs Temp Pulse Resp BP Pulse Ox O2 Del Method 98.2 F 67 16 170/66 H 99 Room Air 10/25/22 17:00 10/25/22 17:17 10/25/22 17:00 10/25/22 17:17 10/25/22 17:00 10/25/22 17:00 Oxygen Delivery Method Room Air Weight: 68.9 kg Body Mass Index (BMI) 23.8 Intake & Output: Intake and Output for Last 24 Hours 10/23/22 10/24/22 10/25/22 23:59 23:59 23:59 Intake Total 600 / 600 Balance 600 / 600 Lab / Micro Data 10/24/22 17:24 10/24/22 17:24 Labs: Laboratory Results - last 24 hr 10/24/22 17:20: Urine Color Yellow, Urine Clarity Clear, Urine pH 5.0, Ur Specific [place] 1.020, Urine Protein 30 H, Urine Glucose (UA) Normal, Urine Ketones 15 H, Urine Occult Blood 50 H, Urine Nitrite Negative, Urine Bilirubin Negative, Urine Urobilinogen Normal, Ur Leukocyte Esterase 25 H, Urine RBC 0-5 SEEN, Urine WBC 0-5 SEEN, Ur Squamous Epith Cells 0-5 SEEN, Urine Bacteria 0 SEEN, Urine Mucus 0 SEEN 10/24/22 17:24: WBC 7.3, RBC 4.88, Hgb 14.4, Hct 43.4, MCV 88.9, MCH 29.5, MCHC 33.2, RDW Std Deviation 40.9, RDW Coeff of Ronnie 12.5, Plt Count 180, MPV 11.2, Immature Gran % (Auto) 0.100, Neut % (Auto) 80.0 H, Lymph % (Auto) 15.0 L, Bandera % (Auto) 4.4, Eos % (Auto) 0.0, Baso % (Auto) 0.5, Absolute Neuts (auto) 5.9, Absolute Lymphs (auto) 1.10, Nucleated RBC % 0, Sodium 143, Potassium 3.7, Chloride 110 H, Carbon Dioxide 23.0, Anion Gap 10, BUN 17, Creatinine 1.15 H, Estim Creat Clear Calc 38.57, Est GFR (MDRD) Af Amer 58 L, Est GFR (MDRD) Non-Af 48 L, BUN/Creatinine Ratio 14.8, Glucose 127 H, Calcium 9.2, Total Bilirubin 0.50, AST 35, ALT 35, Alkaline Phosphatase 90, Total Protein 7.2, Albumin 4.2, Globulin 3.0, Albumin/Globulin Ratio 1.4, TSH 2.44 10/25/22 14:49: Vitamin B12 426, Syphilis Total Ab Non-reactive Radiography Diagnostic Testing: Radiology Impression Brain CT 10/24/22 17:04 IMPRESSION: There are no acute findings. Chronic involutional changes of the brain. Electronically Signed: Chente Adair MD at 18:13 EDT , Chest X-Ray 10/24/22 17:40 IMPRESSION: No acute findings in the chest. Electronically Signed: Chente Adair MD at 18:15 EDT , Physical Exam Const alert, no apparent distress and average body habitus Constitutional Narrative: Patient is oriented as to self and time, she remains confused otherwise General Appearance: well kempt, well developed and uncooperative Orientation / Consciousness: awake, oriented to person, oriented to time and confused HEENT normocephalic, head/scalp atraumatic and moist oral mucous membranes Eyes PERRL, EOMs intact bilaterally and conjunctivae normal Neck supple, no JVD, thyroid normal and no carotid bruits General: trachea midline Resp normal respiratory effort, no retractions, no use of accessory muscles and clear to auscultation bilaterally Auscultation: Negative for rales, rhonchi or wheezes Cardio regular rate, regular rhythm, S1 normal heart sound, S2 normal heart sound, no murmurs, no rub, no gallops and no clicks GI normal to inspection, nondistended, normoactive bowel sounds, soft to palpation, non-tender and non-distended Extremity no clubbing, cyanosis or edema Skin no rashes or lesions noted General Skin Exam: no breakdown Neuro CN's II-XII intact bilaterally, moves all extremities, no focal motor deficits and no sensory deficits noted Neuro Narrative: Patient is alert but confused, she is oriented as to person and time Sensorium / Orientation: awake, alert, oriented to person and oriented to time Speech: speech normal Psych Psych Narrative: Patient is confused Assessment & Plan Assessment/Plan (1) Alzheimer's dementia: QUALIFIERS: Alzheimer's disease onset: unspecified onset Dementia severity: moderate Dementia behavioral or psychological symptom: with other behavioral disturbance Qualified Code(s): G30.9 - Alzheimer's disease, unspecified; F02.B18 - Dementia in other diseases classified elsewhere, moderate, with other behavioral disturbance PLAN: Plan 1. Alzheimer's dementia with behavioral disturbances-according to patient's daughter in law, patient's behavior has become increasingly confused over the last several days, I do not feel the patient has had an acute stroke, patient's daughter does not want the patient to be placed on antipsychotics at this time and the [id number] states that the patient is unable to return home because the family is unable to take care of her, continue PT and OT, patient will need placement in a assisted facility #2 hypothyroidism-patient is on Synthroid #3 hyperlipidemia-patient is on a statin #4 hypertension-patient is not on any medications for blood pressure at this time, I have elected to continue to monitor blood pressure at this time, she may need blood pressure medications added to her medicine regimen tomorrow. Total clinical time spent by myself addressing the patient's medical issues, reviewing all of her data, and collaborating with patient's care team: 35 minutes Charges/Coding Visit Charges Inpatient E&M: 19364 Subs Hosp L2
[2022-10-25 18:42] VITALS: BP 164/74
[2022-10-25 22:42] VITALS: PULSE 63; RESP 16; TEMP 36.8; O2SAT 92
[2022-10-26 01:00] VITALS: BP 153/76; PULSE 85; RESP 16; TEMP 36.7; O2SAT 96
--- NOTE | 2022-10-26 05:01 | NURSING ---
Nurse went into take vitals and give evening meds for this patient. Patient wouldn't take oral meds nor would she let me take her blood pressure. Patient not as vocal as the night before but did say I can't have any more treatment but wouldn't give a reason why. Another nurse went in around 0100 and was able to get a full set of vitals.
[2022-10-26 08:44] VITALS: O2SAT 94
--- NOTE | 2022-10-26 09:01 | CASEMGMT ---
[facility]. Phone call to pt dgt in law Araceli and updated. Araceli is now uncertain about [facility] and would like a referral to [facility]. [place] licensed physical therapy assistant updated and referral to be sent. Plan: [facility], pending acceptance and Level of care XOCHITL Alexander
--- NOTE | 2022-10-26 09:23 | CASEMGMT ---
Discharge Planning Referral sent to [facility] via [facility]. Alis Alvarez, Discharge Planning Asst.
--- NOTE | 2022-10-26 09:51 | NURSING ---
This RN went in pt room to perform vital signs and assessment. Pt very resistive to care. Pt says no with every question asked. According to report, pt is more accepting of care when family is here. Will try again when family arrives.
[2022-10-26 14:45] VITALS: BP 176/80; PULSE 77; RESP 18; TEMP 37.5; O2SAT 94
--- NOTE | 2022-10-26 15:19 | TREXTCAR_ITS ---
Diet Diet Order/Speech Therapy: 10/24/22 20:53 Diet: Cardiac - Heart Healthy Food consistency:: Regular Liquid Consistency:: Regular/Thin Routine Orders/Code Status Code Status: DNRCC-A (no intubation) Therapies Weight Bearing: Full weight bearing Physical Therapy: Eval and Treat Occupational Therapy: Eval and Treat Problem/Diagnosis (1) Alzheimer's dementia: Status: Chronic Code(s): G30.9 - Alzheimer's disease, unspecified; F02.80 - Dementia in other diseases classified elsewhere, unspecified severity, without behavioral disturbance, psychotic disturbance, mood disturbance, and anxiety Plan 1. Alzheimer's dementia with behavioral disturbances-according to patient's daughter in law, patient's behavior has become increasingly confused over the last several days, I do not feel the patient has had an acute stroke, patient's daughter does not want the patient to be placed on antipsychotics at this time and the [id number]-xp-war states that the patient is unable to return home because the family is unable to take care of her, continue PT and OT, patient will need placement in a care home facility #2 hypothyroidism-patient is on Synthroid #3 hyperlipidemia-patient is on a statin #4 hypertension-patient is not on any medications for blood pressure at this time, I have elected to continue to monitor blood pressure at this time, she may need blood pressure medications added to her medicine regimen tomorrow. Total clinical time spent by myself addressing the patient's medical issues, reviewing all of her data, and collaborating with patient's care team: 35 minutes Allergies/Procedures Done in Hospital Allergies No Known Allergies Allergy (Verified 10/24/22 16:48) Procedures: None Type of Care/Length of Stay Estimated LOS: Convalescent Care Less Than 30 days Type of Care Needed: Skilled Rehab Potential: Fair Prognosis: Fair Additional Orders/Day of Discharge H&P will serve as current which was dated: 10/24/22 Day of Discharge: 10/26/22 Discharge Plan Admission Admit Date/Time: 10/24/22 19:23 Primary Reason for Your Visit: Alzheimer's dementia with behavior disturbances Attending Provider: Rex Forte Primary Care Provider: Kalia Weir Chi Consulting Providers: Toan Sheth Discharge Orders/Prescriptions Prescriptions: Continued aspirin [Adult Aspirin Regimen] 81 mg tablet,delayed release (DR/EC) 81 mg PO DAILY simvastatin 40 MG tablet 40 mg PO DAILY levothyroxine 75 mcg tablet 75 mcg PO DAILY Hold Instructions: MD Ordered Patient Comments: TAKE 1 TABLET BY MOUTH EVERY DAY donepezil 10 mg tablet 10 mg PO QHS Patient Comments: TAKE 1 TABLET ORALLY ONCE PER DAY FOR 90 DAYS TAKE WITH SUPPER. Discontinued levothyroxine 88 mcg tablet 75 mcg PO DAILY Referrals / Follow Up: Kalia Weir Chi, MD [Primary Care Provider] - Disposition Disposition (needs filled in before D/C Order can be placed): [facility] (1) Alzheimer's dementia Qualifiers: Alzheimer's disease onset: unspecified onset Dementia severity: moderate Dementia behavioral or psychological symptom: with other behavioral disturbance Qualified Code(s): G30.9 - Alzheimer's disease, unspecified; F02.B18 - Dementia in other diseases classified elsewhere, moderate, with other behavioral disturbance
--- NOTE | 2022-10-26 15:28 | PCM.DC.SUM ---
Providers Date of Admission: 10/24/22 Date of Discharge: 10/26/22 Primary Care Physician: Dr. Kalia Weir MD Reason For Visit: WORSENING DEMENTIA Diagnosis Discharge Diagnosis (1) Alzheimer's dementia: Status: Chronic Code(s): G30.9 - Alzheimer's disease, unspecified; F02.80 - Dementia in other diseases classified elsewhere, unspecified severity, without behavioral disturbance, psychotic disturbance, mood disturbance, and anxiety Qualifiers: Alzheimer's disease onset: unspecified onset Dementia behavioral or psychological symptom: with other behavioral disturbance Dementia severity: moderate Qualified Code(s): G30.9 - Alzheimer's disease, unspecified; F02.B18 - Dementia in other diseases classified elsewhere, moderate, with other behavioral disturbance Plan 1. Alzheimer's dementia with behavioral disturbances-according to patient's daughter in law, patient's behavior has become increasingly confused over the last several days, I do not feel the patient has had an acute stroke, patient's daughter does not want the patient to be placed on antipsychotics at this time and the [id number] states that the patient is unable to return home because the family is unable to take care of her, continue PT and OT, patient will need placement in a [place] [facility] facility #2 hypothyroidism-patient is on Synthroid #3 hyperlipidemia-patient is on a statin #4 hypertension-patient is not on any medications for blood pressure at this time, I have elected to continue to monitor blood pressure at this time, she may need blood pressure medications added to her medicine regimen tomorrow. #5 chronic kidney disease stage IIIa Total clinical time spent by myself addressing the patient's medical issues, reviewing all of her data, and collaborating with patient's care team: 35 minutes Medications at Discharge Home Medications simvastatin 40 mg tablet 40 mg PO DAILY 05/24/15 aspirin 81 mg tablet,delayed release (Adult Aspirin Regimen) 81 mg PO DAILY 11/08/21 donepezil 10 mg tablet 10 mg PO QHS dementia 10/24/22 levothyroxine 75 mcg tablet 75 mcg PO DAILY thyroid 10/24/22 Hospital Course Operations None Procedures None Summary of Care Provided Minutes Spent on Discharge: 31 Hospital Course: 81-year-old white female was seen in the emergency room at [facility] after being brought in by her family with concerns over increased confusion over the past 5 days along with behavioral changes. Patient has a long history of dementia. Labs obtained were only remarkable for creatinine of 1.15, CT of the brain showed no acute findings, there were chronic involutional changes of the brain noted to be present. [facility] patient was seen by PT and OT, since she was in observation patient, discussions were carried out with her family and it was agreed that she would be placed in an extended care facility for ongoing care, family unfortunately would have to pay for this. Patient's blood pressure was monitored during her hospital stay, I elected not to place the patient on blood pressure medication due to the patient's intermittent agitation and the feeling that the blood pressure could be elevated due to her hospitalization. On 10/26/2022, patient was seen and examined:alert, no apparent distress and average body habitus Constitutional Narrative: Patient is oriented as to self and time, she remains confused otherwise General Appearance: well kempt, well developed and uncooperative Orientation / Consciousness: awake, oriented to person, oriented to time and confused HEENT normocephalic, head/scalp atraumatic and moist oral mucous membranes Eyes PERRL, EOMs intact bilaterally and conjunctivae normal Neck supple, no JVD, thyroid normal and no carotid bruits General: trachea midline Resp normal respiratory effort, no retractions, no use of accessory muscles and clear to auscultation bilaterally Auscultation: Negative for rales, rhonchi or wheezes Cardio regular rate, regular rhythm, S1 normal heart sound, S2 normal heart sound, no murmurs, no rub, no gallops and no clicks GI normal to inspection, nondistended, normoactive bowel sounds, soft to palpation, non-tender and non-distended Extremity no clubbing, cyanosis or edema Skin no rashes or lesions noted General Skin Exam: no breakdown Neuro CN's II-XII intact bilaterally, moves all extremities, no focal motor deficits and no sensory deficits noted Neuro Narrative: Patient is alert but confused, she is oriented as to person and time Sensorium / Orientation: awake, alert, oriented to person and oriented to time Speech: speech normal Psych Psych Narrative: Patient is confused On 10/26/2022, patient was seen and examined and felt to be in stable condition to be discharged to an extended care facility for further skilled care. Weight / BMI Weight Weight: 68.9 kg Body Mass Index (BMI) 23.8 ABG / Lab / Microbiology Data 10/24/22 17:24 10/24/22 17:24 Laboratory: Laboratory Results - last 24 hr 10/25/22 14:49: Vitamin B12 426, Syphilis Total Ab Non-reactive Meaningful Use Info Meaningful Use Diagnoses (Choose all that apply): None applicable Discharge Plan Admission Admit Date/Time: 10/24/22 19:23 Primary Reason for Your Visit: Alzheimer's dementia with behavior disturbances Attending Provider: Rex Forte Primary Care Provider: Kalia Weir Chi Consulting Providers: Toan Sheth Discharge Orders/Prescriptions Prescriptions: Continued aspirin [Adult Aspirin Regimen] 81 mg tablet,delayed release (DR/EC) 81 mg PO DAILY simvastatin 40 MG tablet 40 mg PO DAILY levothyroxine 75 mcg tablet 75 mcg PO DAILY Hold Instructions: Ordered Patient Comments: TAKE 1 TABLET BY MOUTH EVERY DAY donepezil 10 mg tablet 10 mg PO QHS Patient Comments: TAKE 1 TABLET ORALLY ONCE PER DAY FOR 90 DAYS TAKE WITH SUPPER. Discontinued levothyroxine 88 mcg tablet 75 mcg PO DAILY Referrals / Follow Up: Kalia Weir Chi, MD [Primary Care Provider] - Disposition Disposition (needs filled in before D/C Order can be placed): [facility] Charges/Coding Visit Charges Inpatient E&M: 72330 Disch Hosp >30min
--- NOTE | 2022-10-26 15:43 | CASEMGMT ---
Discharge Planning [facility]. Family aware. Discharge orders, signed med list, and passr/results sent to [facility] via [facility]. Notified [place] that patient will be transported by her family when loc results are received. Asked if covid test is needed. Awaiting response. Alis Alvarez, Discharge Planning Asst.
--- NOTE | 2022-10-26 15:44 | CASEMGMT ---
Addendum entered by Ciara Smith 10/26/22 16:46: Level of Care obtained. Pt ready for discharge. Nurse, [place] and pt dgt made aware. XOCHITL Alexander Original Note: Social Work [facility] is able to accept pt. Physician updated and pt is ready for d/c today. [facility]. Pt with encephalopathy but inability to care for self is related to Dementia and is not related to developmental disability. SW submitted paperwork for Level of Care. Pt family updated and agreeable for pt to go to [facility] today. Discharge orders sent to [facility] via [facility]port. Pt family requesting to transport pt to [facility]. Disposition: [facility], intermediate level of care under Medicaid Level of Care XOCHITL Alexander
--- NOTE | 2022-10-26 15:50 | CASEMGMT ---
Discharge Planning [facility] and [facility] notified via [facility] that patient has chosen another facility. Alis Alvarez, Discharge Planning Asst.
== END 2022-10-26 17:22 ==
LOC: ED 19:26 → MS3 20:01
PROVIDERS: Admitting Provider Hospitalist; Emergency Provider Emergency Medicine; PCP Family Medicine Geriatric Medicine; Visit Provider Internal Medicine
DX: G93.40 Encephalopathy, unspecified (principal); G30.9 Alzheimer's disease, unspecified; F02.818 Dementia in other diseases classified elsewhere, unspecified severity, with other behavioral disturbance; N18.31 Chronic kidney disease, stage 3a; Z87.891 Personal history of nicotine dependence; E78.5 Hyperlipidemia, unspecified; Z79.82 Long term (current) use of aspirin; I12.9 Hypertensive chronic kidney disease with stage 1 through stage 4 chronic kidney disease, or unspecified chronic kidney disease; E03.9 Hypothyroidism, unspecified; F32.A Depression, unspecified; Z79.899 Other long term (current) drug therapy; Z79.890 Hormone replacement therapy; I16.0 Hypertensive urgency
CPT/HCPCS: 36415; 70450; 71045; 80053; 81001; 82607; 84443; 85025; 86780; 87426; 93005; 96365; 96367; 97162; 97166; 97530; 97535; 99221; 99283; A4216; G0378